=== PATIENT | male | born 2005 | race Caucasian/White ===

== ENCOUNTER 2025-03-01 14:59 | Emergency (ER) | payer MEDICAID, SELFPAY ==
--- NOTE | ~2025-03-01 | CT_ITS ---
EXAMINATION: CT lumbar spine wo con COMPARISON: None HISTORY: fall TECHNIQUE: Axial images were obtained through the spine without IV contrast. Coronal, sagittal reconstruction images were obtained from the axial views. CT scan performed using dose optimization techniques including the following automated exposure control; adjustment of mA and/or kV; use of iterative reconstruction technique. Automatic exposure control was used to reduce radiation dose. Permanent radiation dose record is archived to PACS. FINDINGS: Moderate loss of vertebral height throughout with mild levoconvex scoliosis. No acute fracture or subluxation is identified. Moderate to severe loss of disc height throughout most marked at L4-5 and L5-S1 with facet hypertrophy with moderate to severe canal and foraminal stenosis. Soft tissues demonstrate renal calculi the largest right kidney midpole 3 x 4 mm. Impression: 1. No acute fracture. Degenerative changes. MRI suggested to assess Reviewed, dictated and finalized at location [employer] Impression: 1. No acute fracture. Degenerative changes. MRI suggested to assess
[2025-03-01 15:11] VITALS: BP 171/92; PULSE 110; RESP 18; TEMP 37.1; O2SAT 97
--- NOTE | 2025-03-01 16:53 | ED_ITS ---
HPI - General Adult General Chief complaint: Back Pain/Injury <ARAVIND Caballero - Last Filed: 03/01/25 16:59> Stated complaint: fall, back pain <ARAVIND Caballero Last Filed: 03/01/25 16:59> Time Seen by Provider: 03/01/25 17:12 <ARAVIND Caballero - Last Filed: 03/01/25 16:59> Focused HPI: 20 year old male presenting after slipping on ice landing on his lower back. Reports hearing a crack and then sharp shooting pain down the back of his right leg. Patient is ambulatory. Denies numbness/tingling. Significant history of multiple lumbar spine surgeries. GENERAL: No acute distress. HEAD: Normocephalic, atraumatic. CHEST: Clear to auscultation. ?No respiratory distress. HEART: Regular rate and rhythm.? NEURO: ?Alert and oriented x3. Patient screened in triage and initial orders placed.? ?Additional care and disposition to be based upon?diagnostic testing and treatment. <ARAVIND Caballero - Last Filed: 03/01/25 16:59> Related Data Allergies/adverse reactions: Allergies Allergy/AdvReac Type Severity Reaction Status Date / Time No Known Allergies Allergy Verified 03/01/25 15:15 <ARAVIND Caballero - Last Filed: 03/01/25 16:59> Review of Systems Review of Systems: All systems reviewed & are unremarkable except as noted in HPI and below <Odalys Upton PA-C - Last Filed: 03/01/25 18:01> Exam Narrative: GENERAL: Well-appearing, well-nourished, and in no acute distress. HEAD: Normocephalic, atraumatic. EYES: EOMI. CHEST: Clear to auscultation. No respiratory distress. No wheezes rales or rhonchi HEART: Regular rate and rhythm. No murmur heard. Normal peripheral pulses. BACK: No midline spinal tenderness EXTREMITIES: Normal range of motion. No edema or obvious deformity. Strength equal in bilateral lower extremities (5/5) SKIN: Warm, dry, no rash. NEURO: No focal deficits. Alert and oriented x3. PSYCH: Normal mood and affect <CORTEZ Elizabeth Last Filed: 03/01/25 18:01> Course Vital Signs Vital signs: Vital Signs Temperature 98.7 F 03/01/25 15:11 Pulse Rate 110 H 03/01/25 15:11 Respiratory Rate 18 03/01/25 15:11 Blood Pressure 171/92 H 03/01/25 15:11 Pulse Oximetry 97 03/01/25 15:11 Oxygen Delivery Room Air 03/01/25 15:11 Temperature 98.7 F 03/01/25 17:13 Pulse Rate 113 H 03/01/25 17:13 Respiratory Rate 18 03/01/25 17:13 Blood Pressure 150/98 H 03/01/25 17:13 Pulse Oximetry 96 03/01/25 17:13 Oxygen Delivery Room Air 03/01/25 15:11 <ARAVIND Caballero - Last Filed: 03/01/25 16:59> Vital Signs Temperature 98.7 F 03/01/25 15:11 Pulse Rate 110 H 03/01/25 15:11 Respiratory Rate 18 03/01/25 15:11 Blood Pressure 171/92 H 03/01/25 15:11 Pulse Oximetry 97 03/01/25 15:11 Oxygen Delivery Room Air 03/01/25 15:11 Temperature 98.7 F 03/01/25 17:13 Pulse Rate 113 H 03/01/25 17:13 Respiratory Rate 18 03/01/25 17:13 Blood Pressure 150/98 H 03/01/25 17:13 Pulse Oximetry 96 03/01/25 17:13 Oxygen Delivery Room Air 03/01/25 15:11 <CORTEZ Elizabeth Last Filed: 03/01/25 18:01> [facility] Narrative Medical decision making narrative: Patient presents to the emergency department for low back pain after a fall today. He did not hit his head or lose consciousness. He is neurologically intact. Denies saddle anesthesia, bowel/bladder incontinence. CT lumbar spine without acute abnormalities. Showing degenerative changes. Patient updated on his workup. He is to follow up with his spine surgeon. He was given warnings to return to the ER <CORTEZ Elizabeth Last Filed: 03/01/25 18:01> Differential Diagnosis Differential Diagnosis: Compression fracture, muscle strain <Odalys Upton PA-C - Last Filed: 03/01/25 18:01> Imaging Data Radiologist's impression: ITS Impressions Lumbar Spine CT 03/01/25 17:34 Impression: 1. No acute fracture. Degenerative changes. MRI suggested to assess <ARAVIND Caballero Last Filed: 03/01/25 16:59> ITS Impressions Lumbar Spine CT 03/01/25 17:34 Impression: 1. No acute fracture. Degenerative changes. MRI suggested to assess <Odalys Upton PA-C - Last Filed: 03/01/25 18:01> Critical Care Time Critical Care Time Critical Care Time: No <Odalys Upton PA-C - Last Filed: 03/01/25 18:01> Discharge Plan Discharge Clinical Impression: Strain of lumbar region Qualifiers: Encounter type: initial encounter Qualified Code(s): S39.012A - Strain of muscle, fascia and tendon of lower back, initial encounter <ARAVIND Caballero Last Filed: 03/01/25 16:59> Patient Disposition: Home <ARAVIND Caballero Last Filed: 03/01/25 16:59> Condition: Stable <ARAVIND Caballero Last Filed: 03/01/25 16:59> Instructions: Acute Low Back Pain (ED) <ARAVIND Caballero Last Filed: 03/01/25 16:59> Additional Instructions: Return to the ER if you experience weakness, numbness, bowel/bladder incontinence, or any other symptoms that are concerning to you Rest, use ice/heat, take anti-inflammatories (Aleve, Ibuprofen, Naproxen, etc) or Tylenol as needed for pain as well as muscle relaxer (Flexeril) as needed for pain. Muscle relaxers can make you drowsy, do not drive if you take this Follow up with your spine surgeon <ARAVIND Caballero Last Filed: 03/01/25 16:59> Patient Language: Maori <ARAVIND Caballero Last Filed: 03/01/25 16:59> Prescriptions: New cyclobenzaprine 10 mg tablet 10 mg PO TID PRN (Reason: muscle spasm) Qty: 14 0RF <ARAVIND Caballero - Last Filed: 03/01/25 16:59> Follow-up/Referrals: UNKNOWN,DOCTOR [Non-Staff] <ARAVIND Caballero - Last Filed: 03/01/25 16:59>
[2025-03-01 17:13] VITALS: BP 150/98; PULSE 113; RESP 18; TEMP 37.1; O2SAT 96
--- OUTSIDE RECORDS SUMMARY | 2025-03-01 17:44 | XMS_ITS | Clinical Summary ---
Author Organization [facility] Address [address] [place] [id number] Care Team Providers Care Inbound Telemarketer Name Role Phone Rhina Shah RITA Primary Care Provider [phone] Allergies No known active allergies Medications Multiple Vitamin (MULTIVITAMIN) tablet Take 1 tablet by mouth daily Active Ascorbic Acid (VITAMIN C) 100 MG TABS Take 100 mg by mouth daily Active Social History Tobacco Use Types Packs/Day Years Used Date Smoking Tobacco: Never Smokeless Tobacco: Never Alcohol Use Standard Drinks/Week Comments Never 0 (1 standard drink = 0.6 oz pur e alcohol) [facility] Utilities Answer Date Recorded In the past 12 months has [facility] [employer], gas, oil, or water [employer] threatened to shut off services in your home? No 08/22/2024 Humiliation, Afraid, Rape, and Kick questionnair e Answer Date Recorded Within the last year, have y ou been afraid of your partner or ex-partner? No 08/22/2024 Within the last year, have y ou been humiliated or emotionally abused in other ways by your partner or ex-partner? No Within the last year, have y ou been kicked, hit, slapped, or otherwise physically hurt by your partner or ex-partner? No 08/22/2024 Within the last year, have y ou been raped or forced to have any kind of sexual activity by your partner or ex-partner? No 08/22/2024 Hunger Vital Sign Answer Date Recorded Within the past 12 months, y ou worried that your food would run out before you got the money to buy more. Never true 08/23/19 25 Within the past 12 months, t he food you bought just didn't last and you didn't have money to get more. Never true 08/22/2024 PRAPARE - Transportation Answer Date Re corded In the past 12 months, has l ack of transportation kept you from medical appointments or from getting medications? No 07/31 In the past 12 months, has l ack of transportation kept you from meetings, work, or from getting things needed for daily living? No 08/22/2024 Housing Stability Vital Sign Answer Delroy e Recorded In the last 12 months, was t here a time when you were not able to pay the mortgage or rent on time? No 08/22/2024 In the past 12 months, how m any times have you moved where you were living? 1 08/22/2024 At any time in the past 12 m [facility], were you homeless or living in a care home (including now)? No 08/22/2024 Alcohol Use Answer Date Recorded Frequency of Alcohol Consumption Not on file 09/16/2023 Average Number of Drinks Not on file 024 Frequency of Binge Drinking Not on file 08/30 Alcohol Use Status Never 09/16/2023 Average alcohol consumption Not on file 08/30 Sex and Gender Information Value Date Recorded Sex Assigned at Male 08/22/2024 5:53 PM CDT Legal Sex Male 9:25 AM CDT Gender Identity Male 08/22/2024 5:53 PM CDT Sexual Orientation Straight 08/22/2024 5: 53 PM CDT Last Filed Vital Signs Vital Sign Reading Time Taken Comments Blood Pressure 153/90 08/22/2024 7:00 PM CDT Pulse 92 08/22/2024 7:00 PM CDT Temperature 36.7 C (98 F) 08/22/2024 7:00 PM CDT Respiratory Rate 16 08/22/2024 7:00 PM CDT Oxygen Saturation 95% 08/22/2024 7:00 PM CDT Inhaled Oxygen Concentration - - Weight 201.2 kg (443 lb 9.6 oz) 08/22/2024 5:13 PM CDT Height 195.6 cm (6' 5) 08/22/2024 5:13 PM CDT Body Mass Index 52.6 08/22/2024 5:13 PM CDT Plan of Treatment Health Maintenance Due Date Last Done Comments HIV Screening 2003 Hepatitis C Screening ages 18 to 79 once 2003 MMR VACCINES (1 of 1 - Standard series) 01/06/2004 YEARLY WELLNESS EXAM 2006 DEPRESSION SCREENING 2015 HPV VACCINES (1 - Male 3-dose series) 2018 Meningococcal B Vaccine (1 of 2 - Standard) 2019 BMI Above/Below Normal Parameters 2021 HEPATITIS B VACCINES (1 of 3 - 19+ 3-dose series) 2022 Influenza Vaccine 10/30/2024 04/17/2012 ADULT TETANUS 11/03/2024 11/03/2014 DTaP/Tdap/Td Vaccines (7 - Td or Tdap) 11/03/2024 11/03/2014, 11/01/2008, 08/01/2004, Additional history exists COVID-19 Immunization ( - season) 2024 Zoster Vaccine (Recombinant Vaccine) (1 of 2) 2053 Varicella Vaccine Completed 11/03/2014, , 04/10/2004 HEPATITIS A VACCINES Aged Out No long er eligible based on patient's age to complete this topic HIB VACCINES Aged Out No longer eligi ble based on patient's age to complete this topic IPV VACCINES Aged Out No longer eligi ble based on patient's age to complete this topic MENINGOCOCCAL VACCINE Aged Out No charissa devonte eligible based on patient's age to complete this topic Pneumococcal Vaccine: Peds to 50 & At-Risk Patients Aged Out No longer eligi ble based on patient's age to complete this topic ROTAVIRUS VACCINES Aged Out No longer eligible based on patient's age to complete this topic Insurance [facility] [place] Care Teams Inbound Telemarketer Relationship Specialty Start Date End Date Rhina Shah FNP [address] [place] [address] PCP - General Nurse Practitioner 09/08/20
--- OUTSIDE RECORDS SUMMARY | 2025-03-01 17:44 | XMS_ITS | Clinical Summary ---
Author Organization [facility] Address [address] [place] [address] Care Team Providers Care Licensed Massage Therapist Name Role Phone Unavailable Primary Care Provider Unavailabl e Source Comments [facility],non-owned Affiliates and Associated Physician Practices is amultiple site organization consisting of ambulatory clinics and hospital sitesin [place], [place], [place] and [place]. This disclosure is being madepursuant to the Care Everywhere program and may not contain all information available regarding this patient. Last updated 17.[facility] Allergies No known active allergies Medications * Be aware that medications may not be up to date on this document. Alwaysverify current medications with the patient. cetirizine (ZYRTEC) 5 MG/5ML syrup Take 5 mg by mouth daily. Active albuterol (PROVENTIL;VENT NILDA) (2.5 MG/3ML) 0.083% nebulizer solution Inhale 2.5 mg by mouth 2 times daily. Takes every morning Active montelukast (SINGULAIR) 5 MG chew tablet Take 5 mg by mouth at bedtime. Active fluticasone propionate (FLONASE) 50 MCG/ACT nasal spray [place] 1 [place] into each nostril daily. Active albuterol HFA (PROVENTIL;VENT NILDA;PROAIR) 108 (90 BASE) MCG/ACT inhalerIndicati ons:Asthma Inhale 2 Puffs by mouth every 6 hours as needed With aerochamber 1 1 09/06/201 0 Active fluticasone hfa 44 (FLOVENT HFA 44) 44 MCG/ACT inhalerIndicati ons:Asthma Inhale 2 Puffs by mouth 2 times daily. With aerochamber 1 Inhaler 6 0 Active Active Problems Problem Noted Date Diagnosed Date Asthma 09/06/2009 Family History Medical History Relation Name Comments Asthma Brother Allergies Mother Eczema Neg Hx Relation Name Status Comments Brother Mother Social History Tobacco Use Types Packs/Day Years Used Date Smoking Tobacco: Never Sex and Gender Information Value Date Recorded Sex Assigned at Not on file Legal Sex Male 7:09 AM [employer]IRT [employer]TER Gender Identity Not on file Sexual Orientation Not on file Last Filed Vital Signs Vital Sign Reading Time Taken Comments Blood Pressure 102/62 12/06/2009 1:32 PM CDT Pulse 120 12/06/2009 1:32 PM CDT Temperature - - Respiratory Rate 20 09/06/2009 10:23 AM CDT Oxygen Saturation 98% 12/06/2009 1:32 PM CDT Inhaled Oxygen Concentration - - Weight 44.1 kg (97 lb 3.6 oz) 12/06/2009 1:32 PM CDT Height 129.3 cm (4' 2.91) 12/06/2009 1:32 PM CD T Body Mass Index 26.38 12/06/2009 1:32 PM CDT Plan of Treatment Health Maintenance Due Date Last Done Comments HIV SCREENING 2018 HPV VACCINE (1 - Male 3-dose series) 2018 MENINGOCOCCAL (Group B) VACC INE SHARED DECISION-MAKING (1 of 2 - Standard) 2019 HEPATITIS C SCREENING 12/31/2020 DTAP/TDAP/TD VACCINES (1 - Tdap) 2022 HEPATITIS B VACCINE (1 of 3 - 19+ 3-dose series) 2022 DEPRESSION SCREENING 04/01/2024 COVID-19 VACCINE (1 - 2024-2 6 season) 2024 INFLUENZA VACCINE (#1) 2024 ZOSTER VACCINE (1 of 2) 2053 HIB VACCINE Aged Out No longer eligi ble based on patient's age to complete this topic MENINGOCOCCAL GROUPS A/C/Y/W VACCINE Aged Out No longer eligible b ased on patient's age to complete this topic PNEUMOCOCCAL VACCINE Aged Out No long er eligible based on patient's age to complete this topic
== END 2025-03-01 18:10 | disposition home or self-care (01) ==
PROVIDERS: Emergency Provider Physician Assistant
DX: S39.012A Strain of muscle, fascia and tendon of lower back, initial encounter (principal); W00.0XXA Fall on same level due to ice and snow, initial encounter
CPT/HCPCS: 72131; 99284